=== PATIENT | male | born 1985 | race Two or more races ===

== ENCOUNTER 2022-01-25 19:57 | Emergency (ER) | payer BC, OTHER ==
[2022-01-25] MEDS: Ketorolac 30 MG/ML SDV IM ONE (20:22)
[2022-01-25 20:42] VITALS: BP 135/84; PULSE 61
== END 2022-01-25 20:25 | disposition home or self-care (01) ==
LOC: LL.ED 19:57
DX: K08.89 Other specified disorders of teeth and supporting structures (principal)
CPT/HCPCS: 96372; 99282; 99283; J1885

== ENCOUNTER 2022-12-27 18:17 | Emergency (ER) | payer BC ==
[2022-12-27 18:37] VITALS: BP 139/92; PULSE 66
[2022-12-27] MEDS ORDERED: Amoxicillin/Clavulanate K 875-125 MG Tab PO ONE (18:56)
[2022-12-27] MEDS ORDERED: Bupivacaine 0.5% 10 ML SDV INJECT ONE (18:56)
[2022-12-27] MEDS ORDERED: Lidocaine 2% Viscous Solution 15 ML UD PO PRN (19:03)
== END 2022-12-27 19:48 | disposition home or self-care (01) ==
LOC: LL.ED 18:17
DX: K04.7 Periapical abscess without sinus (principal)
CPT/HCPCS: 64400; 99282; A9270-GY; J3490